=== PATIENT | female | born 1990 | race Caucasian/White ===

== ENCOUNTER 2018-12-13 12:10 | Emergency (ER) | payer OTHER ==
[~2018-12-13] VITALS: Ht 177.8 cm; Wt 147.4 kg
[~2018-12-13 12:10] MED LIST: APRI1 EACH; IBUPROFEN 800800 MG PO; MEDROL; NORCO 5-325 TA1 EACH PO
[2018-12-13 12:32] LABS: URINE BILIRUBIN NEGATIVE (Negative); URINE BLOOD NEGATIVE (Negative); URINE CLARITY CLEAR; URINE COLOR YELLOW; URINE GLUCOSE-RANDOM NEGATIVE (Negative); URINE KETONES NEGATIVE (Negative); URINE LEUKOCYTES-REFLEX NEGATIVE (Negative); URINE NITRITE-REFLEX NEGATIVE (Negative); URINE PROTEIN NEGATIVE (Negative); URINE SPECIFIC GRAVITY >= 1.030 (1.005-1.030); URINE UROBILINOGEN 0.2 E.U./dl (0.2-1.0)
[2018-12-13] MEDS ORDERED: PREDNISONE 10 M10 M1 PO (12:42)
[2018-12-13] MEDS ORDERED: CYCLOBENZAPRINE10 MG PO (12:43)
[2018-12-13 13:03] VITALS: BP 173/67
== END 2018-12-13 13:03 | disposition home or self-care (01) ==
LOC: M.ERS 12:10
PROVIDERS: Nurse Practitioner Family
DX: M54.41 Lumbago with sciatica, right side (principal)